=== PATIENT | male | born 1950 | race Hispanic/Latino ===

== ENCOUNTER 2017-02-10 14:24 | Inpatient (IN) | payer MEDICARE, OTHER ==
[2017-02-10 14:38] VITALS: BMI 23.5
[2017-02-10] MEDS ORDERED: Sodium Chloride 0.9% 1,000 ML IV STA (14:41)
--- NOTE | 2017-02-10 15:20 | RAD ---
HISTORY: tachy COMPARISON: 03/24/2015 FINDINGS: LUNGS: No active pulmonary disease. PLEURA: No significant pleural effusion identified, no pneumothorax apparent. CARDIOVASCULAR: Normal. OSSEOUS STRUCTURES: Chronic left-sided rib fractures VISUALIZED UPPER ABDOMEN: Normal. OTHER FINDINGS: None. IMPRESSION: No active disease.
--- NOTE | 2017-02-10 15:31 | ED PDOC ---
Arrival/HPI - General Chief Complaint: Palpitations Time Seen by Provider: 02/10/17 14:29 Historian: Patient - History of Present Illness Narrative History of Present Illness (Text): 02/10/17 15:31 A 66 year old male, whose past medical history includes hypertension and hypertrophic cardiomyopathy, was sent from PMD office for tachycardia and constipation for the past ten days. Patient reports painful bowel movements, last bowel movement was ten days ago. Also notes rectal bleeding a week ago and last night. Patient notes back pain three weeks ago and saw PMD ten days ago, who prescribed muscle relaxers and antiinflammatories. Notes nausea but denies abdominal pain, vomiting, fever, appetite changes, chest pain or any other complaints at this time. Reports smoking but denies any drug use. PMD: Dr. Ed Costello Time/Duration: > week Symptom Onset: Sudden Symptom Course: Unchanged Activities at Onset: Rest Context: Home Past Medical History - Provider Review Nursing Documentation Reviewed: Yes - Infectious Disease Hx of Infectious Diseases: None - Cardiac Hx Hypertension: Yes Other/Comment: Hypertrophic Cardiomyopathy - Gastrointestinal Hx Constipation: Yes Hx Gastroesophageal Reflux: Yes - Genitourinary/Gynecological Hx Prostate Problems: Yes (prostate removed) - Psychiatric Hx Substance Use: No - Surgical History Other/Comment: Prostate Sx - Anesthesia Hx Anesthesia: Yes Hx Anesthesia Reactions: No Hx Malignant Hyperthermia: No Family/Social History - Physician Review Nursing Documentation Reviewed: Yes Family/Social History: No Known Family HX Smoking Status: Heavy Smoker > 10 Cigarettes Daily Hx Alcohol Use: Yes Frequency of alcohol use: Socially Hx Substance Use: No Allergies/Home Meds Allergies/Adverse Reactions: Allergies No Known Allergies Allergy (Verified 02/10/17 18:54) Home Medications: Home Meds Medication Instructions Recorded Confirmed Cyclobenzaprine [Flexeril] 5 mg PO QID PRN 02/10/17 02/10/17 Lisinopril/Hydrochlorothiazide 25 mg PO DAILY 02/10/17 02/10/17 [Lisinopril-Hctz 10-12.5 mg Tab] Metoprolol Succinate [Toprol XL] 50 mg PO BID 02/10/17 02/10/17 Nabumetone [Nabumetone] 750 mg PO BID 02/10/17 02/10/17 Omeprazole [Omeprazole] 20 mg PO DAILY 02/10/17 02/10/17 Review of Systems - Physician Review All systems were reviewed & negative as marked: Yes - Review of Systems Constitutional: absent: Fevers Cardiovascular: absent: Chest Pain Gastrointestinal: Constipation, Nausea, Other (rectal bleeding). absent: Abdominal Pain, Vomiting, Appetite Changes Musculoskeletal: Back Pain Physical Exam Vital Signs Reviewed: Yes Vital Signs Temp Pulse Resp BP Pulse Ox 02/10/17 17:00 90 17 112/85 100 02/10/17 16:12 90 17 138/69 100 02/10/17 14:25 98.5 F 108 H 17 110/83 98 Appearance: Positive for: Well-Appearing, Non-Toxic, Comfortable Pain Distress: None Mental Status: Positive for: Alert and Oriented X 3 - Systems Exam Head: Present: Atraumatic, Normocephalic Pupils: Present: PERRL Extroacular Muscles: Present: EOMI Conjunctiva: Present: Normal Mouth: Present: Moist Mucous Membranes Neck: Present: Normal Range of Motion Respiratory/Chest: Present: Clear to Auscultation, Good Air Exchange. No: Respiratory Distress, Accessory Muscle Use Cardiovascular: Present: Regular Rate and Rhythm, Normal S1, S2. No: Murmurs Abdomen: Present: Tenderness (left sided ), Normal Bowel Sounds. No: Distention , Peritoneal Signs Rectal: Present: Occult Blood (positive). No: Gross Blood, Melena Back: Present: Normal Inspection Upper Extremity: Present: Normal Inspection. No: Cyanosis, Edema Lower Extremity: Present: Normal Inspection. No: Edema Neurological: Present: GCS=15, CN II-XII Intact, Speech Normal Skin: Present: Warm, Dry, Normal Color. No: Rashes Psychiatric: Present: Alert, Oriented x 3, Normal Insight, Normal Concentration Medical Decision Making ED Course and Treatment: 02/10/17 15:28 EKG: Ordered, reviewed, and independently interpreted the EKG. Rate : 99 BPM Rhythm : NSR Interpretation : LVH, nonspecific ST abnormality 02/10/17 15:23 chest xray: Creator : Max Matias MD IMPRESSION: No active disease. 02/10/17 17:54 CT Abdomen and Pelvis with contrast Creator : Jalen Mustafa MD FINDINGS: LOWER THORAX: Unremarkable. LIVER: Unremarkable. No gross lesion or ductal dilatation. GALLBLADDER AND BILE DUCTS: Unremarkable. PANCREAS: Unremarkable. No gross lesion or ductal dilatation. SPLEEN: Unremarkable. ADRENALS: Unremarkable. No mass. KIDNEYS AND URETERS: Unremarkable. No hydronephrosis. No solid mass. Incidental finding(s): Bilateral simple renal cysts the largest in the upper pole of the left kidney 2.5 cm. VASCULATURE: Unremarkable. No aortic aneurysm. BOWEL: Unremarkable. No obstruction. No gross mural thickening. APPENDIX: Normal appendix. PERITONEUM: Unremarkable. No free fluid. No free air. LYMPH NODES: Unremarkable. No enlarged lymph nodes. BLADDER: Unremarkable. REPRODUCTIVE: Prior prostatectomy. Expected postoperative findings in the pelvis. Less the BONES: No acute fracture. IMPRESSION: No significant or acute findings to account for/ related to the clinical presentation. Additional benign and/or incidental findings described above. - Lab Interpretations Lab Results: 02/10/17 15:00 02/10/17 15:50 Lab Results 02/10/17 15:50: Sodium 137, Potassium 3.7, Chloride 105, Carbon Dioxide 22, Anion Gap 14, BUN 26 H, Creatinine 0.9, Est GFR ( Amer) > 60, Est GFR ( Non-Af Amer) > 60, Random Glucose 94, Calcium 9.3, Total Bilirubin 1.1, AST 33, ALT 30, Alkaline Phosphatase 90, Troponin I 0.02, Total Protein 6.5, Albumin 3.9 , Globulin 2.6, Albumin/Globulin Ratio 1.5, Lipase 61 02/10/17 15:05: Urine Color Yellow, Urine Appearance Clear, Urine pH 6.0, Ur Specific [place] >= 1.030, Urine Protein Trace H, Urine Glucose (UA) Negative, Urine Ketones Trace H, Urine Blood Negative, Urine Nitrate Negative, Urine Bilirubin Negative, Urine Urobilinogen 1.0 H, Ur Leukocyte Esterase Negative, Urine RBC 0 - 2, Urine WBC 0 - 2, Ur Epithelial Cells None, Amorphous Sediment Few, Urine Bacteria Large, Urine Other Uyeast 02/10/17 15:00: PT 12.1 H, INR 1.12 H, APTT 28.7 02/10/17 15:00: WBC 7.6, RBC 5.09, Hgb 15.6, Hct 42.8, MCV 84.1, MCH 30.6, MCHC 36.4, RDW 12.2, Plt Count 195, MPV 11.9 H, Gran % 70.8 H, Lymph % (Auto) 19.8 L , [place] % (Auto) 8.3 H, Eos % (Auto) 0.8 L, Baso % (Auto) 0.3, Gran # 5.41, Lymph # 1.5, [place] # 0.6, Eos # 0.1, Baso # 0.02 I have reviewed the lab results: Yes - RAD Interpretation Radiology Orders: 02/10/17 14:41 CHEST PORTABLE [RAD] Stat 02/10/17 15:43 ABD & PELVIS IV CONTRAST ONLY [CT] Stat - EKG Interpretation Interpreted by ED Physician: Yes Type: 12 lead EKG - Medication Orders Current Medication Orders: Cyclobenzaprine HCl (Flexeril) 5 mg PO QID PRN PRN Reason: Pain, Mild (1-3) Hydrochlorothiazide (Microzide) 12.5 mg PO DAILY [facility] Last Admin: 02/11/17 09:58 Dose: 12.5 mg Lisinopril (Zestril) 10 mg PO DAILY [facility] Last Admin: 02/11/17 09:59 Dose: 10 mg Metoprolol Succinate (Toprol Xl) 50 mg PO BID [facility] Last Admin: 02/11/17 09:58 Dose: 50 mg Pantoprazole Sodium (Protonix Inj) 40 mg IVP DAILY [facility] Last Admin: 02/11/17 09:59 Dose: 40 mg Discontinued Medications Sodium Chloride (Sodium Chloride 0.9%) 1,000 mls @ 999 mls/hr IV .Q1H1M STA Stop: 02/10/17 15:41 Last Admin: 02/10/17 15:11 Dose: 999 mls/hr Iohexol (Omnipaque 350 100 Ml) Confirm Administered Dose 350 mg .ROUTE .STK-MED ONE Stop: 02/10/17 16:36 Magnesium Citrate (Citrate Of Mag) 300 ml PO ONCE ONE Stop: 02/11/17 11:06 Last Admin: 02/11/17 11:20 Dose: 300 ml Morphine Sulfate (Morphine) 4 mg IVP STAT STA Stop: 02/10/17 17:03 Last Admin: 02/10/17 17:05 Dose: 4 mg Pantoprazole Sodium (Protonix Inj) 40 mg IVP STAT STA Stop: 02/10/17 14:43 Last Admin: 02/10/17 15:11 Dose: 40 mg - Scribe Statement The provider has reviewed the documentation as recorded by the Rinku Diallo Provider Rinku Attestation: All medical record entries made by the Rinku were at my direction and personally dictated by me. I have reviewed the chart and agree that the record accurately reflects my personal performance of the history, physical exam, medical decision making, and the department course for this patient. I have also personally directed, reviewed, and agree with the discharge instructions and disposition. Disposition/Present on Arrival - Present on Arrival Any Indicators Present on Arrival: No History of DVT/PE: No History of Uncontrolled Diabetes: No Urinary Catheter: No History of Decub. Ulcer: No History Surgical Site Infection Following: None - Disposition Have Diagnosis and Disposition been Completed?: Yes Diagnosis: Rectal bleeding Disposition: HOSPITALIZED Disposition Time: 15:57 Condition: STABLE
[2017-02-10 15:35] LABS: URINE APPEARANCE CLEAR (CLEAR); URINE BILIRUBIN NEGATIVE (NEGATIVE); URINE BLOOD NEGATIVE (NEGATIVE); URINE COLOR YELLOW (YELLOW); URINE GLUCOSE (UA) NEGATIVE (NEGATIVE); URINE KETONE TRACE mg/dL (NEGATIVE); URINE LEUKOCYTE ESTERASE NEGATIVE Leu/uL (NEGATIVE); URINE PROTEIN TRACE mg/dL (<30 mg/dL)
[2017-02-10 15:35] LABS: BASO # 0.02 K/mm3 (0.0-2.0); BASO % 0.3 % (0.0-3.0); EOS # 0.1 (0.0-0.7); EOS % 0.8 % (1.5-5.0); GRAN # 5.41 (1.4-6.5); GRAN % 70.8 % (50.0-68.0); HEMATOCRIT 42.8 % (42.0-52.0); LYMPH # 1.5 (1.2-3.4); LYMPH % 19.8 % (22.0-35.0); MEAN CELL VOLUME 84.1 fl (80.0-105.0); MEAN CORPUSCULAR HEMOGLOBIN 30.6 pg (25.0-35.0); MEAN CORPUSCULAR HGB CONC 36.4 g/dl (31.0-37.0); MEAN PLATELET VOLUME 11.9 fl (7.0-11.0); MONO # 0.6 (0.1-0.6); MONO % 8.3 % (1.0-6.0); RED CELL DISTRIBUTION WIDTH 12.2 % (11.5-14.5); WHITE BLOOD COUNT 7.6 10^3/ul (4.5-11.0)
[2017-02-10 15:41] LABS: INR 1.12 (0.93-1.08); PARTIAL THROMBOPLASTIN TIME 28.7 Seconds (23.7-30.8)
[2017-02-10 16:02] LABS: ALB/GLOB RATIO 1.5 (1.1-1.8); ALKALINE PHOSPHATASE 90 U/L (38-133); ALT/SGPT 30 U/L (7-56); AST/SGOT 33 U/L (15-59); BILIRUBIN,TOTAL 1.1 mg/dL (0.2-1.3); BLOOD UREA NITROGEN 26 mg/dL (7-21); CALCIUM 9.3 mg/dL (8.4-10.5); CARBON DIOXIDE 22 mmol/L (21-33); CHLORIDE 105 mmol/L (98-107); GFR AFRICAN-AMERICAN > 60; GLUCOSE,RANDOM 94 mg/dL (70-110); LIPASE 61 U/L (23-300); POTASSIUM 3.7 mmol/L (3.6-5.0); SODIUM 137 mmol/L (132-148); TOTAL PROTEIN 6.5 g/dL (5.8-8.3)
[2017-02-10 16:10] LABS: URINE AMORPHOUS SEDIMENT FEW; URINE BACTERIA LARGE (NEG); URINE RBC 0 - 2 /hpf (0-2); URINE WBC 0 - 2 /hpf (0-6)
[2017-02-10 16:12] LABS: TROPONIN I 0.02 ng/mL
[2017-02-10] MEDS ORDERED: Iohexol 350 MG/100 ML VIAL ONE (16:35)
[2017-02-10] MEDS ORDERED: Morphine 4 mg/ml ISec IVP STA (17:02)
--- NOTE | 2017-02-10 17:47 | CARD ---
APPROVED REPORT EKG Measurement Heart [id number] <Conclusion> Normal sinus rhythm Possible Left atrial enlargement Left ventricular hypertrophy ST abnormality, possible digitalis effect Abnormal ECG
--- NOTE | 2017-02-10 17:51 | CT ---
PROCEDURE: CT Abdomen and Pelvis with contrast HISTORY: Unspecified abdominal pain. Relevant surgical history: Prior prostatectomy COMPARISON: 08/12/2016 MRI pelvis TECHNIQUE: Contrast dose: 100 cc Omnipaque 350 Radiation dose: Total exam DLP = 457.50 mGy-cm. This CT exam was performed using one or more of the following dose reduction techniques: Automated exposure control, adjustment of the mA and/or kV according to patient size, and/or use of iterative reconstruction technique. FINDINGS: LOWER THORAX: Unremarkable. LIVER: Unremarkable. No gross lesion or ductal dilatation. GALLBLADDER AND BILE DUCTS: Unremarkable. PANCREAS: Unremarkable. No gross lesion or ductal dilatation. SPLEEN: Unremarkable. ADRENALS: Unremarkable. No mass. KIDNEYS AND URETERS: Unremarkable. No hydronephrosis. No solid mass. Incidental finding(s): Bilateral simple renal cysts the largest in the upper pole of the left kidney 2.5 cm. VASCULATURE: Unremarkable. No aortic aneurysm. BOWEL: Unremarkable. No obstruction. No gross mural thickening. APPENDIX: Normal appendix. PERITONEUM: Unremarkable. No free fluid. No free air. LYMPH NODES: Unremarkable. No enlarged lymph nodes. BLADDER: Unremarkable. REPRODUCTIVE: Prior prostatectomy. Expected postoperative findings in the pelvis. Less the BONES: No acute fracture. OTHER FINDINGS: None. IMPRESSION: No significant or acute findings to account for/ related to the clinical presentation. Additional benign and/or incidental findings described above.
[2017-02-11 07:29] LABS: ALB/GLOB RATIO 1.4 (1.1-1.8); ALKALINE PHOSPHATASE 77 U/L (38-133); ALT/SGPT 36 U/L (7-56); AST/SGOT 27 U/L (15-59); BILIRUBIN,TOTAL 0.7 mg/dL (0.2-1.3); BLOOD UREA NITROGEN 23 mg/dL (7-21); CALCIUM 9.3 mg/dL (8.4-10.5); CARBON DIOXIDE 25 mmol/L (21-33); CHLORIDE 102 mmol/L (98-107); GFR AFRICAN-AMERICAN > 60; GLUCOSE,RANDOM 82 mg/dL (70-110); POTASSIUM 3.6 mmol/L (3.6-5.0); SODIUM 136 mmol/L (132-148); TOTAL PROTEIN 6.3 g/dL (5.8-8.3)
[2017-02-11 07:34] LABS: BASO # 0.03 K/mm3 (0.0-2.0); BASO % 0.5 % (0.0-3.0); EOS # 0.2 (0.0-0.7); EOS % 2.5 % (1.5-5.0); GRAN # 3.47 (1.4-6.5); GRAN % 55.2 % (50.0-68.0); HEMATOCRIT 36.1 % (42.0-52.0); LYMPH % 32.2 % (22.0-35.0); MEAN CELL VOLUME 84.3 fl (80.0-105.0); MEAN CORPUSCULAR HEMOGLOBIN 30.6 pg (25.0-35.0); MEAN CORPUSCULAR HGB CONC 36.3 g/dl (31.0-37.0); MONO # 0.6 (0.1-0.6); MONO % 9.6 % (1.0-6.0); RED CELL DISTRIBUTION WIDTH 12.3 % (11.5-14.5); WHITE BLOOD COUNT 6.3 10^3/ul (4.5-11.0)
[2017-02-11] MEDS: Metoprolol Succinate 50 mg XL Tab PO SCH ×2 (09:58→18:09)
[2017-02-11 10:01] VITALS: RESP 20
[2017-02-11] MEDS ORDERED: Magnesium Citrate Oral SOL (300 ml) PO ONE (11:05)
[2017-02-11 14:21] LABS: BLOOD UREA NITROGEN 31 mg/dL (7-21); GFR AFRICAN-AMERICAN > 60; GLUCOSE,RANDOM 124 mg/dL (70-110); POTASSIUM 3.4 mmol/L (3.6-5.0); SODIUM 136 mmol/L (132-148)
[2017-02-11 14:22] LABS: CALCIUM 9.6 mg/dL (8.4-10.5); CARBON DIOXIDE 24 mmol/L (21-33); CHLORIDE 101 mmol/L (98-107)
[2017-02-12 06:34] VITALS: TEMP 98.6
--- NOTE | 2017-02-12 08:52 | CP.PCM.CON ---
History of Present Illness - History of Present Illness History of Present Illness: this 66-year-old patient with a past medical history of GI bleeding admitted in ICU sooner transfusion on long-term PPI noticed it difficult in bowel movements. He mentioned the ER did not move his bowels close to 10 days. Rectal examination positive for occult blood positive. Denies any obvious bleeding per rectum or melena he did have bowel movements today after laxative. It was firm stools as per the patient is abdominal discomfort and rectal discomfort improved after bowel movements. He mentioned that his last colonoscopy was more than 10 years ago OTHER PAST MEDICAL HISTORY hypertension dyslipidemia SOCIAL HISTORY smokes about 10 cigarettes per day social alcohol ALLERGIES no known drug allergy FAMILY HISTORY noncontributory REVIEW OF THE SYSTEM All other systems reviewed negative except above Past Patient History - Infectious Disease Hx of Infectious Diseases: None - Past Social History Smoking Status: Heavy Smoker > 10 Cigarettes Daily - CARDIAC Hx Hypertension: Yes Other/Comment: Hypertrophic Cardiomyopathy - PULMONARY Hx Respiratory Disorders: Yes (SMOKES 15 CIG A DAY.USED TO SMOKE PK 1/2 PER DAY. ) - NEUROLOGICAL Hx Neurological Disorder: Yes Other/Comment: 02-10-17 SHOOTING PAIN TO LEFT THIGH UPON STRAINING. - HEENT Hx HEENT Problems: No - RENAL Hx Chronic Kidney Disease: Yes Hx Kidney Stones: Yes - ENDOCRINE/METABOLIC Hx Endocrine Disorders: No - HEMATOLOGICAL/ONCOLOGICAL Hx Blood Disorders: Yes Hx Anemia: Yes (WITH BLOOD TRANSFUSION) Hx Cancer: Yes (PROSTATE CA) - INTEGUMENTARY Hx Dermatological Problems: No - MUSCULOSKELETAL/RHEUMATOLOGICAL Hx Musculoskeletal Disorders: Yes Hx Falls: Yes Hx Fractures: Yes (RIBS-2009,ARM FX 2012) - GASTROINTESTINAL Hx Constipation: Yes Hx Gastroesophageal Reflux: Yes - GENITOURINARY/GYNECOLOGICAL Hx Prostate Problems: Yes (prostate removed) - PSYCHIATRIC Hx Substance Use: No - SURGICAL HISTORY Other/Comment: Prostate Sx - ANESTHESIA Hx Anesthesia: Yes Hx Anesthesia Reactions: No Hx Malignant Hyperthermia: No Meds Allergies/Adverse Reactions: Allergies Allergy/AdvReac Type Severity Reaction Status Date / Time No Known Allergies Allergy Verified 02/10/17 18:54 - Medications Medications: Current Medications Cyclobenzaprine HCl (Flexeril) 5 mg PO QID PRN PRN Reason: Pain, Mild (1-3) Hydrochlorothiazide (Microzide) 12.5 mg PO DAILY [facility] Last Admin: 02/11/17 09:58 Dose: 12.5 mg Lisinopril (Zestril) 10 mg PO DAILY [facility] Last Admin: 02/11/17 09:59 Dose: 10 mg Metoprolol Succinate (Toprol Xl) 50 mg PO BID [facility] Last Admin: 02/11/17 18:09 Dose: 50 mg Pantoprazole Sodium (Protonix Inj) 40 mg IVP DAILY [facility] Last Admin: 02/11/17 09:59 Dose: 40 mg Physical Exam - Head Exam Head Exam: ATRAUMATIC, NORMOCEPHALIC - Eye Exam Eye Exam: EOMI, PERRL - ENT Exam ENT Exam: Mucous Membranes Moist, Normal Oropharynx - Neck Exam Neck exam: Positive for: Full Rom. Negative for: Lymphadenopathy - Respiratory Exam Respiratory Exam: Clear to Auscultation Bilateral, NORMAL BREATHING PATTERN. absent: Rales, Rhonchi - Cardiovascular Exam Cardiovascular Exam: +S1, +S2. absent: JVD - GI/Abdominal Exam GI & Abdominal Exam: Normal Bowel Sounds, Soft. absent: Mass, Tenderness - Extremities Exam Extremities exam: Negative for: calf tenderness, pedal edema, tenderness - Neurological Exam Neurological exam: Alert, Oriented x3 - Psychiatric Exam Psychiatric exam: Normal Affect - Skin Skin Exam: Intact, Warm Results - Vital Signs Recent Vital Signs: Last Vital Signs Temp 97.5 F L 02/11/17 18:00 Pulse 100 H 02/11/17 18:09 Resp 20 02/11/17 18:00 BP 118/77 02/11/17 18:09 Pulse Ox 73 L 02/11/17 18:00 - Labs Result Diagrams: 02/11/17 06:30 02/11/17 14:12 Labs: Laboratory Results - last 24 hr 02/11/17 02/11/17 02/11/17 06:30 06:30 14:12 WBC 6.3 RBC 4.28 Hgb 13.1 L D Hct 36.1 L MCV 84.3 MCH 30.6 MCHC 36.3 RDW 12.3 Plt Count 148 MPV 11.0 Gran % 55.2 Lymph % (Auto) 32.2 [place] % (Auto) 9.6 H Eos % (Auto) 2.5 Baso % (Auto) 0.5 Gran # 3.47 Lymph # 2.0 [place] # 0.6 Eos # 0.2 Baso # 0.03 Sodium 136 136 Potassium 3.6 3.4 L Chloride 102 101 Carbon Dioxide 25 24 Anion Gap 13 14 BUN 23 H 31 H Creatinine 0.8 0.8 Est GFR ( Amer) > 60 > 60 Est GFR (Non-Af Amer) > 60 > 60 Random Glucose 82 124 H Calcium 9.3 9.6 Total Bilirubin 0.7 AST 27 ALT 36 Alkaline Phosphatase 77 Total Protein 6.3 Albumin 3.7 Globulin 2.6 Albumin/Globulin Ratio 1.4 Assessment & Plan - Assessment and Plan (Free Text) Assessment: this 66-year-old patient with a history of massive GI bleeding in the past on long-term PPI last colonoscopy more than 10 years ago now admitted with rectal discomfort no bowel movements for 10 days was found to have blood in the stool. The symptoms much improvement after his bowel movements The differential diagnoses should include colonic neoplasia, colitis, hemorrhoids AVM and upper GI source including ulcer disease also to be considered The hemoglobin remains stable now PLAN 1. Advance diet 2. Follow up on the hemoglobin and hematocrit 3. Continue PPI 4. Would schedule for an outpatient EGD and colonoscopy 5. Discussed with the primary physician 6. Patient is scheduled for endoscopy and colonoscopy on 02/14. Detailed information was given to the patient who fully understood - Date & Time Date: 02/11/17 Time: 17:00
[2017-02-12 08:54] VITALS: BP 146/82; PULSE 65; O2SAT 96
[2017-02-12 09:09] LABS: HEMATOCRIT 37.8 % (42.0-52.0); MEAN CELL VOLUME 84.4 fl (80.0-105.0); MEAN CORPUSCULAR HEMOGLOBIN 29.2 pg (25.0-35.0); MEAN CORPUSCULAR HGB CONC 34.7 g/dl (31.0-37.0); MEAN PLATELET VOLUME 10.9 fl (7.0-11.0); RED CELL DISTRIBUTION WIDTH 12.1 % (11.5-14.5); WHITE BLOOD COUNT 6.1 10^3/ul (4.5-11.0)
[2017-02-12] MEDS: Metoprolol Succinate 50 mg XL Tab PO SCH (09:58)
--- NOTE | 2017-02-13 06:08 | CP.PCM.PN ---
Subjective - Date & Time of Evaluation Date of Evaluation: 02/12/17 Time of Evaluation: 10:15 - Subjective Subjective: still complains of loose bowel movements since he took his medications admitted yesterday. No bleeding per rectum brown stools. He mentioned to me that he has been taking NSAIDs for his back pain sciatica type last few days along with the muscle relaxants. Patient has history of ulcer disease in the past with history of GI bleeding. He has been on omeprazole. yesterday he was scheduled for EGD and colonoscopy as an outpatient on Monday. Presently patient is a reluctant to go through the procedure. He wants to wait his hemoglobin has been stable. He was on nabumetone as an outpatient which was not given his admission. He took his own medication of nebumetone today on his own. The patient was strictly advised to avoid NSAIDs in view of the history of bleeding. He mentioned to me that he had only small amount of blood in the toilet tissue but no significant bleeding or melena otherwise. . Patient was tolerating diet and he wants to go home Objective - Vital Signs/Intake and Output Vital Signs (last 24 hours): Temp Pulse Resp BP Pulse Ox 98.6 F 65 20 146/82 96 02/12/17 06:00 02/12/17 09:59 02/12/17 06:00 02/12/17 09:59 02/12/17 06:00 - Labs Labs: 02/12/17 08:30 02/11/17 14:12 PT 12.1 Seconds (9.9-11.8) H 02/10/17 15:00 INR 1.12 (0.93-1.08) H 02/10/17 15:00 APTT 28.7 Seconds (23.7-30.8) 02/10/17 15:00 - Constitutional Appears: Well, No Acute Distress - Head Exam Head Exam: ATRAUMATIC, NORMOCEPHALIC - Eye Exam Eye Exam: EOMI, PERRL - ENT Exam ENT Exam: Mucous Membranes Moist - Neck Exam Neck Exam: Full ROM, Normal Inspection. absent: Lymphadenopathy - Respiratory Exam Respiratory Exam: Clear to Ausculation Bilateral, NORMAL BREATHING PATTERN. absent: Rales, Rhonchi - Cardiovascular Exam Cardiovascular Exam: REGULAR RHYTHM, +S1, +S2. absent: JVD - GI/Abdominal Exam GI & Abdominal Exam: Soft. absent: Tenderness, Mass - Rectal Exam Rectal Exam: Deferred - Extremities Exam Extremities Exam: absent: Calf Tenderness, Tenderness - Neurological Exam Neurological Exam: Alert, Awake, Oriented x3 - Psychiatric Exam Psychiatric exam: Normal Affect - Skin Skin Exam: Intact, Normal Color, Warm Assessment and Plan - Assessment and Plan (Free Text) Assessment: - Assessment and Plan (Free Text) Assessment: this 66-year-old patient with a history of massive GI bleeding in the past many years ago on long-term PPI last colonoscopy more than 10 years ago now admitted with rectal discomfort no bowel movements for 10 days was found to have blood in the stool. The symptoms much improvement after his bowel movements. Still has some loose bowel movements. He didn't describe an episode of blood in the toilet tissue before at home. History of sciatica type of back pain and was taking NSAID for the past few days. C has loose bowel movements from the sedative medications he took yesterday reluctant to have colonoscopy and endoscopy next week PLAN 1. advised to avoid NSAIDs 2. Follow up on the hemoglobin and hematocrit 3. Continue PPI 4. advised to call our office to have the procedure rescheduled as an outpatient discussed with the patient at length the importance of EGD and colonoscopic evaluation is EGD and colonoscopy was many years ago. Thank you very much for allowing us to participate in the care the patient
--- NOTE | 2017-02-13 22:22 | HP ---
HISTORY OF PRESENT ILLNESS: The patient is a 66-year-old male who presented to the emergency room after a visit to our office where he was found to be tachycardiac and looking ill. The patient said that he has been constipated for the past 10 days. He also complained about severe pain in the left lower extremity, about one week ago he claims to have seen bright red blood per rectum. I saw the patient in the office about 10 days ago, prescribed muscle relaxes and anti-inflammatories for low back pain. The patient denies any nausea, vomiting or diarrhea. He complains of constipation, even more so than his left-sided sciatica/leg pain. PAST MEDICAL HISTORY: He was noted to have past medical history positive for hypertension and cardiomyopathy. He is status post prostatectomy. SOCIAL HISTORY: He still smokes about 1 pack of cigarettes a day. Drinks alcohol socially. ALLERGIES: He has no known medical allergies. MEDICATIONS: His medications at the time of admission included Flexeril 5 mg 4 times a day as needed, lisinopril/hydrochlorothiazide 10/12.5 mg once a day, metoprolol succinate 50 mg twice a day, nabumetone 750 mg twice a day and omeprazole 20 mg once day. REVIEW OF SYSTEMS: Otherwise unremarkable. PHYSICAL EXAMINATION VITAL SIGNS: His blood pressure is 101/83, heart rate is 108 and he is afebrile at 98.5 degrees Fahrenheit. HEAD, EYES, EARS, NOSE AND THROAT: Unremarkable. NECK: Supple with no lymphadenopathy. No goiter. LUNGS: Clear to auscultation and percussion. HEART: Regular. No murmurs are appreciated. ABDOMEN: Essentially flat. There is some left-sided tenderness on deep palpation. Bowel sounds are normal. There is no rebound tenderness. As per the emergency room note, stools were negative for occult blood. EXTREMITIES: Free of cyanosis, clubbing or edema. NEUROLOGIC: The patient is awake, alert and oriented with no focal neurological signs. Chest x-ray shows no acute disease. EKG shows regular sinus rhythm with left atrial enlargement and left ventricular hypertrophy. CAT scan of the abdomen and pelvis is essentially negative. LABORATORY DATA: His blood work is remarkable for hemoglobin and hematocrit of 13.1 and 36.1 respectively. His BUN is 23, creatinine is 0.8. IMPRESSION: The patient is admitted with a diagnosis of gastrointestinal bleed. Gastroenterology consultation is requested and the patient will be reevaluated in the morning. Max Costello MD [email or web address]
--- NOTE | 2017-02-14 09:29 | DS ---
HISTORY OF PRESENT ILLNESS: The patient is a 66-year-old male with a history of hypertension, cardiomyopathy, status post prostatectomy, who presented to the emergency room after being evaluated in our office and felt to be tachycardiac. The patient had been complaining of constipation for approximately 10 days. He also was complaining of history of GI bleed and low back pain with the pain extending down to his left lower extremity. The patient was treated with muscle relaxers. He was kept on IV fluids. He was evaluated by gastroenterology. By the following morning, the patient was pain free as far the left lower extremity goes. He was ambulating freely to the bathroom and he states that his stomach is feeling better; although, he had only what he described as a small bowel movement. The case was discussed with Dr. Chapin, the [employer] Sales[employer] and the patient was cleared to be discharge to home to followup for a colonoscopy and endoscopy in the future. FINAL DIAGNOSES: 1. Abdominal pain. 2. Gastrointestinal bleed. 3. Left sciatica. 4. Hypertension. 5. Cardiomyopathy. Max Costello MD
== END 2017-02-12 13:40 | disposition home or self-care (01) | DRG 378 ==
LOC: ED 14:24 → ERH 15:57 → 3RSO 18:30
PROVIDERS: ADMIT Internal Medicine; ATTEND Internal Medicine
DX: K92.2 Gastrointestinal hemorrhage, unspecified (principal); I42.2 Other hypertrophic cardiomyopathy; I12.9 Hypertensive chronic kidney disease with stage 1 through stage 4 chronic kidney disease, or unspecified chronic kidney disease; N18.9 Chronic kidney disease, unspecified; E78.5 Hyperlipidemia, unspecified; K21.9 Gastro-esophageal reflux disease without esophagitis; K59.00 Constipation, unspecified; M54.42 Lumbago with sciatica, left side; Z79.1 Long term (current) use of non-steroidal anti-inflammatories (NSAID); F17.210 Nicotine dependence, cigarettes, uncomplicated; Z79.899 Other long term (current) drug therapy; Z85.46 Personal history of malignant neoplasm of prostate; Z87.442 Personal history of urinary calculi; Z90.79 Acquired absence of other genital organ(s); R40.2412 Glasgow coma scale score 13-15, at arrival to emergency department; R00.0 Tachycardia, unspecified; D64.9 Anemia, unspecified; Z87.11 Personal history of peptic ulcer disease

== ENCOUNTER 2018-06-14 06:13 | Day surgery (SDC) | payer MEDICARE, OTHER ==
[2018-06-13 09:49] VITALS: BMI 25.7
[2018-06-14] MEDS ORDERED: Propofol 10 mg/ml Inj (20 ML) ONE (07:40)
[2018-06-14] MEDS ORDERED: Lidocaine PF 2% (5 ml) Inj (For Cardiac Arrhy) ONE (07:40)
[2018-06-14] MEDS ORDERED: Sodium Chloride 0.9% 1,000 ML IV SCH (08:45)
[2018-06-14 09:33] VITALS: BP 134/73; PULSE 72; RESP 16; TEMP 97.8; O2SAT 98
== END 2018-06-14 10:13 | disposition home or self-care (01) ==
LOC: ENDO 06:13
PROVIDERS: ATTEND Specialist
DX: Z12.11 Encounter for screening for malignant neoplasm of colon (principal); K57.30 Diverticulosis of large intestine without perforation or abscess without bleeding; K64.8 Other hemorrhoids; I10 Essential (primary) hypertension; I42.9 Cardiomyopathy, unspecified; Z85.46 Personal history of malignant neoplasm of prostate

== ENCOUNTER 2018-08-02 13:28 | Outpatient (CLI) | payer MEDICARE, OTHER | END 2018-08-02 13:29 | disposition home or self-care (01) | LOC: LAB 13:28 ==